=== PATIENT | male | born 1945 | race Caucasian/White ===

== ENCOUNTER → 2016-11-02 | Outpatient (CLI) | payer MEDICARE, OTHER ==
[~2016-11-02] MED LIST: ASPIRIN 32325 MG/TAB PO; ASPIRIN 81M81 MG/TA2 PO; CRESTOR40 MG PO; EFFIENT10 MG PO; GARLIC1 TAB PO; GINKO BILOBA60 MG PO; HCTZ 25MG TAB25 MG PO; MOTRIN 200200 MG/TAB PO; MULTI VITAMINS1 TAB PO; NITROSTAT0.4 MG/TAB SL; OMEGA-3 FISH1200 MG PO; PRINIVIL10 MG PO; SAW PALMETTO E160 M1 PO; TOPROL XL 25MG25 MG PO; [UNRECOGNIZED DRUG - OTHER] PO
[2016-11-02 20:02] LABS: HEMATOCRIT 37.2 % (42.0-52.0); HEMOGLOBIN 12.7 g/dl (13.5-18.0); MEAN CELL VOLUME 95 fl (80.0-100.0); MEAN CORPUSCULAR HEMOGLOBIN 32 pg (27.0-31.0); MEAN CORPUSCULAR HGB CONC 34 g/dl (33.0-37.0); MEAN PLATELET VOLUME 10.6 fl (7.4-10.4); PLATELET COUNT 145 K/mm3 (130-400); RED BLOOD COUNT 3.92 M/mm3 (4.20-5.60); REDCELL DISTRIBUTION WIDTH-CV 12.7 % (11.5-14.5); WHITE BLOOD COUNT 4.9 K/mm3 (4.8-10.8)
[2016-11-02 20:05] LABS: CALCIUM 9.1 mg/dL (8.4-10.2); CREATININE, serum 0.95 mg/dL (0.66-1.25); POTASSIUM 4.5 mmol/L (3.4-5.0)
== END ==
LOC: COL.LAB 19:33
PROVIDERS: Internal Medicine Interventional Cardiology
DX: I70.213 Atherosclerosis of native arteries of extremities with intermittent claudication, bilateral legs (principal)